=== PATIENT | male | born 1975 | race Two or more races ===

== ENCOUNTER 2016-06-26 20:22 | Emergency (ER) | payer MEDICAID, OTHER ==
[2016-06-26 20:31] VITALS: RESP 16
--- NOTE | 2016-06-26 20:58 | EDPHY ---
H & P Time Seen by Provider: 06/26/16 20:52 HPI/ROS: CHIEF COMPLAINT: Multiple complaints HISTORY OF PRESENT ILLNESS: This patient is a normally healthy 41 year old male who presents to the Emergency Department complaining of fever, cough, and headache over the past 2-3 weeks. His symptoms first presented as mild sore throat, nasal congestion, and cough and have since evolved to include persistent cough and body aches. He also has other complaints of bilateral mid- back pain and excessive thirst. He denies any new onset urinary or abdominal complaints. No pertinent medical history. No known history of diabetes, though both parents are diabetic. REVIEW OF SYSTEMS: Constitutional: +fever, +chills. +excessive thirst, +diffuse myalgias Eyes: No visual changes ENT: No sore throat Respiratory: +cough, no shortness of breath Cardiac: No chest pain Gastrointestinal: No nausea, no vomiting, no abdominal pain Genitourinary: no dysuria Musculoskeletal: No leg pain or swelling Skin: No rash Neurological: +headache, no numbness, no weakness Psychiatric: No depression Past Medical/Surgical History: Denies. Social History: Drinks socially. Does not smoke. at bedside. Montserratian-speaking only. Smoking Status: Never smoked Physical Exam: Alert and oriented x3, no acute distress Left hand: Mild diffuse swelling of left hand; blisters between third and fourth digits at the level of the PIP. Fingers are warm. Capillary refills is brisk. Radial pulse 2+. Neuro: Motor and sensory intact. Range of motion of all digits, limited due to swelling. Vascular: Capillary refill brisk distally Constitutional: Initial Vital Signs Temperature (C) 36.9 C 06/26/16 20:29 Heart Rate 81 06/26/16 20:29 Respiratory Rate 16 06/26/16 20:29 Blood Pressure 151/85 H 06/26/16 20:29 O2 Sat (%) 95 06/26/16 20:29 O2 Delivery Mode Room Air Allergies/Adverse Reactions: No Known Allergies Allergy (Verified 06/26/16 20:33) Home Medications: Medication Instructions Recorded NO HOME MEDICATIONS 04/18/11 Medical Decision Making - Diagnostics Imaging: Imaging Impressions Chest X-Ray 06/26/16 21:03 Impression: Minimal airways disease. No pneumonia. ED Course/Re-evaluation: This normally healthy 41 year old male presents with intermittent fever and chills, body aches, cough, and headache progressing over the past 2-3 weeks. He has other complaints including bilateral mid-back pain, excessive sweating, and increased thirst. He is not regularly evaluated by a PCP and does have familial history of diabetes in both parents. His exam is benign. He is afebrile at 36.9C. Will proceed with chest x-ray, labs, and urine dip. Urine dip is negative. Labs reviewed: Blood glucose level is elevated at 121. WBC within normal limits. Flu screen is positive. I discussed lab and imaging results with the patient as well as my recommendation that he follow-up with his primary care provider for evaluation, including further evaluation of possible prediabetes or diabetes. He is agreeable this. He will be discharged home in good condition with Tylenol instructions for fever. Differential Diagnosis: Differential diagnosis includes but is not limited to pneumonia, otitis media, peritonsillar abscess, retropharyngeal abscess, meningitis. - Data Points Laboratory Results: Laboratory Results 06/26/16 21:10 06/26/16 21:10 06/26/16 06/26/16 06/26/16 21:10 21:10 21:10 WBC 4.35 10^3/uL 10^3/uL (3.80-9.50) RBC 5.09 10^6/uL 10^6/uL (4.40-6.38) Hgb 15.8 g/dL g/dL (13.7-17.5) Hct 47.4 % % (40.0-51.0) MCV 93.1 fL fL (81.5-99.8) MCH 31.0 pg pg (27.9-34.1) MCHC 33.3 g/dL g/dL (32.4-36.7) RDW 11.9 % % (11.5-15.2) Plt Count 217 10^3/uL 10^3/uL (150-400) MPV 8.9 fL fL (8.7-11.7) Neut % (Auto) 41.8 % % (39.3-74.2) Lymph % (Auto) 39.8 % % (15.0-45.0) [place] % (Auto) 15.6 % H % (4.5-13.0) Eos % (Auto) 2.1 % % (0.6-7.6) Baso % (Auto) 0.5 % % (0.3-1.7) Nucleat RBC Rel Count 0.0 % % (0.0-0.2) Absolute Neuts (auto) 1.82 10^3/uL 10^3/uL (1.70-6.50) Absolute Lymphs (auto) 1.73 10^3/uL 10^3/uL (1.00-3.00) Absolute Monos (auto) 0.68 10^3/uL 10^3/uL (0.30-0.80) Absolute Eos (auto) 0.09 10^3/uL 10^3/uL (0.03-0.40) Absolute Basos (auto) 0.02 10^3/uL 10^3/uL (0.02-0.10) Absolute Nucleated RBC 0.00 10^3/uL 10^3/uL (0-0.01) Immature Gran % 0.2 % % (0.0-1.1) Immature Gran # 0.01 10^3/uL 10^3/uL (0.00-0.10) Sodium 140 mEq/L mEq/L (134-144) Potassium 3.7 mEq/L mEq/L (3.5-5.2) Chloride 104 mEq/L mEq/L (97-110) Carbon Dioxide 23 mEq/l mEq/l (22-31) Anion Gap 13 mEq/L mEq/L (8-16) BUN 16 mg/dL mg/dL (7-23) Creatinine 0.8 mg/dL mg/dL (0.7-1.3) Estimated GFR > 60 Glucose 121 mg/dL H mg/dL (70-100) Calcium 9.1 mg/dL mg/dL (8.5-10.4) Influenza Typ A,B (DFA) POSITIVE FOR FLU B H (NEGATIVE) Medications Given: Discontinued Medications Sodium Chloride (Ns) 1,000 mls @ 0 mls/hr IV ONCE ONE PRN Reason: Wide Open Stop: 06/26/16 21:04 Last Admin: 06/26/16 21:07 Dose: 1,000 mls Departure - Departure Disposition: Home, Routine, Self-Care Clinical Impression: Hyperglycemia, Influenza Condition: Good Instructions: Influenza (ED), Hyperglycemia, Non-Diabetic (ED) Additional Instructions: 1. Follow-up with a primary care provider within 5-7 days to address possible diabetes. 2. Take 850mg Tylenol by mouth every 4-6 hours as needed for fever. 3. Return to the Emergency Department with uncontrollable fever, lightheadedness , confusion, seizures, or other serious concerns. Referrals: Johnny Carrizales MD [Primary Care Provider] - As per Instructions [facility],. [Clinic] - As per Instructions Report Scribed for: Zayda Villar Report Scribed by: Denise Weiss Date of Report: 06/26/16 Time of Report: 20:53 Physician Review and Approval Statement: 06/26/16 20:53 Portions of this note were transcribed by a lpn medical assistant. I personally performed a history, physical exam, medical decision making, and confirmed accuracy of information the transcribed note.
[2016-06-26] MEDS ORDERED: NS 1,000 ML IV ONE (21:03)
[2016-06-26 21:23] LABS: % IMMATURE GRANULYOCYTES 0.2 % (0.0-1.1); ABSOLUTE IMMATURE GRANULOCYTES 0.01 10^3/uL (0.00-0.10); ADD DIFF? NO; ADD MORPH? NO; ADD SCAN? NO; ATYPICAL LYMPHOCYTE FLAG 10 (0-99); FRAGMENT RBC FLAG 0 (0-99); HEMATOCRIT 47.4 % (40.0-51.0); HEMOGLOBIN 15.8 g/dL (13.7-17.5); LEFT SHIFT FLG 10 (0-99); LIPEMIA HEMOLYSIS FLAG 80 (0-99); MEAN CELL HEMOGLOBIN CONCENTR. 33.3 g/dL (32.4-36.7); MEAN CELL VOLUME 93.1 fL (81.5-99.8); MEAN PLATELET VOLUME 8.9 fL (8.7-11.7); PLATELET CLUMPS FLAG 20 (0-99); PLATELET COUNT 217 10^3/uL (150-400); RED BLOOD CELL COUNT 5.09 10^6/uL (4.40-6.38); RED CELL DISTRIBUTION WIDTH 11.9 % (11.5-15.2)
[2016-06-26 21:31] LABS: ANION GAP 13 mEq/L (8-16); CALCIUM 9.1 mg/dL (8.5-10.4); CARBON DIOXIDE 23 mEq/l (22-31); CHLORIDE 104 mEq/L (97-110); CREATININE 0.8 mg/dL (0.7-1.3); GLOMERULAR FILTRATION RATE > 60; GLUCOSE 121 mg/dL (70-100); POTASSIUM 3.7 mEq/L (3.5-5.2); SODIUM 140 mEq/L (134-144)
[2016-06-26 22:16] VITALS: BP 133/89; PULSE 88; TEMP 97.9; O2SAT 96
== END 2016-06-26 22:14 | disposition home or self-care (01) ==
DX: J10.1 Influenza due to other identified influenza virus with other respiratory manifestations (principal); R73.9 Hyperglycemia, unspecified

== ENCOUNTER 2017-07-08 09:27 | Emergency (ER) | payer MEDICAID ==
[2017-07-08] MEDS ORDERED: ONDANSETRON 4 MG/2 ML VIAL IVP ONE (09:54)
[2017-07-08] MEDS ORDERED: KETOROLAC 30 MG/1 ML SDV IVP ONE (09:54)
[2017-07-08] MEDS ORDERED: NS 1,000 ML IV ONE (09:54)
[2017-07-08] MEDS ORDERED: HYDROmorphONE/DILAUDID 2 MG/ML INJ IVP ONE (09:55)
--- NOTE | 2017-07-08 09:58 | EDPHY ---
H & P Stated Complaint: r abd and r flank pain n/v Time Seen by Provider: 07/08/17 09:55 HPI/ROS: HPI: This is a 42-year-old male who presents with Chief Complaint: r abd and r flank pain n/v Location: Right abdomen and right flank Quality: Pain Duration: Starting at 7:30 a.m. This morning Signs and Symptoms: no fever, + nausea,+ vomiting x 1, no hematemesis, no blood in stool, no abdominal bloating, no diarrhea, no back pain, no urinary symptoms , no testicular/groin pain, no indigestion, no chest pain, no shortness of breath Timing: Acute, worsening Severity: 12/28 Context: Patient reports that he is generally healthy, presents this morning with sudden onset of right flank pain that radiated into his right groin approximately 30 min later. He reports that the pain started at a 5/10 and now is a 10/10. It was accompanied by nausea and 1 episode of vomiting prior to breakfast. Patient reports that he has never had any pain like this in the past. Denies any urinary symptoms including no hematuria, no urinary hesitancy , no urinary frequency. Patient reports that yesterday he was feeling fine; ate 3 meals without difficulty. Drinks 1 soda per day. No history of abdominal surgeries. Primary care provider is [facility] clinic. Had a bowel movement yesterday. In the waiting room in the emergency room patient was pain he seen and pacing back and forth and sweating. Patient gave a urine sample in immediately felt relief of pain. Modifying Factors: None Comment: ROS: see HPI Constitutional: No fever, no chills, no weight loss Eyes: No blurred vision Respiratory: No shortness of breath, no cough Cardiovascular: No chest pain, no palpitations Gastrointestinal: + nausea, + vomiting, no diarrhea, no hematemesis, no blood in stool Genitourinary: No dysuria, no blood in urine Extremities: No myalgias, no edema Neurologic: No weakness, no numbness Skin: No rashes, no petechiae Hematologic: No bruising, no bleeding MEDICAL/SURGICAL/SOCIAL HISTORY: Medical history: Generally healthy. Does not take any regular medications. Surgical history: Denies Social history: Reports does not drink alcohol. Family history noncontributory. CONSTITUTIONAL: Pleasant, moderate distress middle-aged male, nontoxic in appearance, awake and alert HEENT: Atraumatic and normocephalic, PERRL, EOMI. Nares patent; no rhinorrhea; no nasal mucosal edema. Tympanic membranes clear. Oropharynx clear, no exudate and moist pink mucosa. Airway patent. No lymphadenopathy. No meningismus. Cardiovascular: Normal S1/S2, regular rate, regular rhythm, without murmur rub or gallop. PULMONARY/CHEST: Symmetrical and nontender. Clear to auscultation bilaterally. Good air movement. No accessory muscle usage. ABDOMEN: Soft, nondistended, right lower quadrant tenderness, no rebound, no guarding, no peritoneal signs, no masses or organomegaly. No CVAT. Bowel sounds heard x4 quadrant. EXTREMITIES: 2/2 pulses, strength 5/5, no deformities, no clubbing, no cyanosis or edema. NEUROLOGICAL: no focal neuro deficits. GCS 15. SKIN: Warm and dry, no erythema. no rash. Good capillary refill. Source: Patient, Supervisor [employer] Exam Limitations: Language barrier (Guyanese) - Personal History Current Tetanus/Diphtheria Vaccine: Yes - Medical/Surgical History Hx Asthma: No Hx Chronic Respiratory Disease: No Hx Diabetes: No Hx Cardiac Disease: No Hx Renal Disease: No Hx Cirrhosis: No Hx Alcoholism: No Hx HIV/AIDS: No Hx Splenectomy or Spleen Trauma: No Other PMH: none - Social History Smoking Status: Never smoked Constitutional: Initial Vital Signs Temperature (C) 36.4 C 07/08/17 09:31 Heart Rate 78 07/08/17 09:31 Respiratory Rate 18 07/08/17 09:31 Blood Pressure 130/114 H 07/08/17 09:31 O2 Sat (%) 97 07/08/17 09:31 O2 Delivery Mode Room Air Allergies/Adverse Reactions: No Known Allergies Allergy (Verified 07/08/17 09:31) Home Medications: Medication Instructions Recorded NO HOME MEDICATIONS 04/18/11 Medical Decision Making - Diagnostics Imaging Results: Imaging Impressions Abdomen/Pelvis CT 07/08/17 09:55 Impression: 1. There is no evidence of nephroureterolithiasis or obstructive uropathy. There is some equivocal inflammation adjacent to the right ureter, which may represent recent passage of a stone. There is no ureteral dilatation. If there is ongoing hematuria, multiphasic contrast-enhanced CT imaging with a "CT urographic" evaluation is suggested. 2. Incompletely-distended urinary bladder, which may account for its wall thickening, although a concurrent cystitis is not excluded. 3. Bilateral fat-containing inguinal hernias. Attention: This CT examination is specifically designed to evaluate patients who are clinically suspected of having acute obstructive uropathy. This examination does not use radiographic contrast, and as such, provides only a limited evaluation of the abdomen, pelvis, and retroperitoneum. If there is further clinical suspicion for pathological conditions other than obstructive uropathy, a complete CT evaluation of the abdomen and pelvis utilizing intravenous, oral, and rectal contrast should be considered. Findings were discussed with Luciana Blanca PA-C at 10:37, on 07/08/2017. ED Course/Re-evaluation: 0955: Labs, urinalysis, IV fluids, IV medication, CT abdomen and pelvis scan without contrast ordered. 1000: Given 1 L normal saline, IV Toradol, IV Dilaudid 1 mg 1028: Labs reviewed. No signs of leukocytosis/anemia/KYM/electrolyte imbalance. Creatinine noted to be 0.8 Urinalysis reviewed and shows 2+ blood; 50-182 RBCs; no signs of infection 1040: Called by radiologist, Dr. Pina, who advised bilateral inguinal hernias but no signs of incarceration. Bladder does not show signs of cystitis. Right ureter shows equivocal dilation. 1045: Reassessed patient. Reports no abdominal flank pain. Abdomen soft and nontender. Doubt surgical abdomen. Based on patient's history of resolution of pain with urination and CT scan showing equivocal right ureter dilation; suspect patient may have passed the stone. Patient is ready to be discharged home; passed p.o. Trial. This patient was seen under the supervision of my secondary supervising physician. I evaluated care for this patient independently. Differential Diagnosis: Flank pain including but not limited to musculoskeletal causes, kidney stone, pyelonephritis, shingles, and intra-abdominal causes such as diverticulitis and appendicitis. - Data Points Laboratory Results: Laboratory Results 07/08/17 09:45 07/08/17 09:45 07/08/17 07/08/17 07/08/17 09:45 09:45 09:30 WBC 6.59 10^3/uL 10^3/uL (3.80-9.50) RBC 5.28 10^6/uL 10^6/uL (4.40-6.38) Hgb 16.2 g/dL g/dL (13.7-17.5) Hct 48.0 % % (40.0-51.0) MCV 90.9 fL fL (81.5-99.8) MCH 30.7 pg pg (27.9-34.1) MCHC 33.8 g/dL g/dL (32.4-36.7) RDW 11.9 % % (11.5-15.2) Plt Count 284 10^3/uL 10^3/uL (150-400) MPV 8.5 fL L fL (8.7-11.7) Neut % (Auto) 55.7 % % (39.3-74.2) Lymph % (Auto) 34.4 % % (15.0-45.0) [place] % (Auto) 5.8 % % (4.5-13.0) Eos % (Auto) 3.3 % % (0.6-7.6) Baso % (Auto) 0.5 % % (0.3-1.7) Nucleat RBC Rel Count 0.0 % % (0.0-0.2) Absolute Neuts (auto) 3.67 10^3/uL 10^3/uL (1.70-6.50) Absolute Lymphs (auto) 2.27 10^3/uL 10^3/uL (1.00-3.00) Absolute Monos (auto) 0.38 10^3/uL 10^3/uL (0.30-0.80) Absolute Eos (auto) 0.22 10^3/uL 10^3/uL (0.03-0.40) Absolute Basos (auto) 0.03 10^3/uL 10^3/uL (0.02-0.10) Absolute Nucleated RBC 0.00 10^3/uL 10^3/uL (0-0.01) Immature Gran % 0.3 % % (0.0-1.1) Immature Gran # 0.02 10^3/uL 10^3/uL (0.00-0.10) Sodium 141 mEq/L mEq/L (135-145) Potassium 4.0 mEq/L mEq/L (3.5-5.2) Chloride 104 mEq/L mEq/L (97-110) Carbon Dioxide 28 mEq/l mEq/l (22-31) Anion Gap 9 mEq/L mEq/L (8-16) BUN 16 mg/dL mg/dL (7-23) Creatinine 0.8 mg/dL mg/dL (0.7-1.3) Estimated GFR > 60 Glucose 137 mg/dL H mg/dL (70-100) Calcium 9.4 mg/dL mg/dL (8.5-10.4) Urine Color YELLOW Urine Appearance CLEAR Urine pH 5.0 (5.0-7.5) Ur Specific [place] 1.017 (1.002-1.030) Urine Protein NEGATIVE (NEGATIVE) Urine Ketones NEGATIVE (NEGATIVE) Urine Blood 2+ H (NEGATIVE) Urine Nitrate NEGATIVE (NEGATIVE) Urine Bilirubin NEGATIVE (NEGATIVE) Urine Urobilinogen NEGATIVE EU EU (0.2-1.0) Ur Leukocyte Esterase NEGATIVE (NEGATIVE) Urine RBC 50-182 /hpf H /hpf (0-3) Urine WBC 1-3 /hpf /hpf (0-3) Ur Epithelial Cells TRACE /lpf /lpf (NONE-1+) Urine Mucus 2+ /lpf H /lpf (NONE-1+) Urine Glucose NEGATIVE (NEGATIVE) Medications Given: Discontinued Medications Hydromorphone HCl (Dilaudid) 1 mg IVP EDNOW ONE Stop: 07/08/17 09:56 Last Admin: 07/08/17 10:06 Dose: Not Given Sodium Chloride (Ns) 1,000 mls @ 0 mls/hr IV ONCE ONE; Wide Open PRN Reason: Protocol Stop: 07/08/17 09:55 Last Admin: 07/08/17 10:05 Dose: 1,000 mls Ketorolac Tromethamine (Toradol) 30 mg IVP EDNOW ONE Stop: 07/08/17 09:55 Last Admin: 07/08/17 10:05 Dose: 30 mg Ondansetron HCl (Zofran) 4 mg IVP EDNOW ONE Stop: 07/08/17 09:55 Last Admin: 07/08/17 10:06 Dose: 4 mg Departure - Departure Disposition: Home, Routine, Self-Care Clinical Impression: Kidney stone on right side, Renal colic on right side Inguinal hernia bilateral, non-recurrent Qualifiers: Obstruction and gangrene presence: without obstruction or gangrene Recurrence: not specified as recurrent Qualified Code(s): K40.20 - Bilateral inguinal hernia , without obstruction or gangrene, not specified as recurrent Condition: Good Instructions: Kidney Stones (ED), Renal Colic (ED), Inguinal Hernia (ED) Additional Instructions: It appears that you may have passed a kidney stone on the right side. Also noted bilateral inguinal hernia. Consume a minimum of 8-10 glasses of water or electrolyte fluid replacement drinks that include Gatorade, Powerade, Pedialyte. Limit soda use. Please avoid lifting heavy objects. Return to the Emergency Room if you spike a fever > 102 F, or experience intractable abdominal pain/nausea/vomiting. Al parecer usted paso un calculo renal( caro del rinon) en el lado derecho. Consuma un munimo de 8-10 vasos con agua o reemplazos de bebidas con electrolitos concetta Gatorade, Powerade, Pedialyte. Limite el consumo de soda. Regrese al cuarto de emergencias si tiene fiebre >102 grados F, o experimenta dolor abdominal/nausea/vomito. Referrals: [facility],. [Clinic] - As per Instructions
[2017-07-08 10:00] LABS: PLATELET COUNT 284 10^3/uL (150-400)
[2017-07-08 11:17] VITALS: BP 135/82
== END 2017-07-08 11:17 | disposition home or self-care (01) ==
DX: K40.20 Bilateral inguinal hernia, without obstruction or gangrene, not specified as recurrent (principal); N20.0 Calculus of kidney; E86.9 Volume depletion, unspecified
CPT/HCPCS: 96374; J1170; J1885; J2405

== ENCOUNTER 2017-12-26 19:12 | Emergency (ER) | payer MEDICAID ==
[2017-12-26 19:19] VITALS: BP 118/77
--- NOTE | 2017-12-26 19:50 | EDPHY ---
H & P Stated Complaint: groin rash 2 wks Time Seen by Provider: 12/26/17 19:29 - Personal History Current Tetanus/Diphtheria Vaccine: Unsure Current Tetanus Diphtheria and Acellular Pertussis (TDAP): Unsure - Medical/Surgical History Hx Asthma: No Hx Chronic Respiratory Disease: No Hx Diabetes: No Hx Cardiac Disease: No Hx Renal Disease: No Hx Cirrhosis: No Hx Alcoholism: No Hx HIV/AIDS: No Hx Splenectomy or Spleen Trauma: No Other PMH: none - Social History Smoking Status: Never smoked Constitutional: Initial Vital Signs Temperature (C) 36.4 C 12/26/17 19:18 Heart Rate 84 12/26/17 19:18 Respiratory Rate 16 12/26/17 19:18 Blood Pressure 118/77 12/26/17 19:18 O2 Sat (%) 95 12/26/17 19:18 O2 Delivery Mode Room Air Allergies/Adverse Reactions: No Known Allergies Allergy (Verified 07/08/17 09:31) Home Medications: Medication Instructions Recorded NO HOME MEDICATIONS 04/18/11 Nystatin/Triamcin 30 channing TP QID #1 oint..gm. 12/26/17 [Nystatin-Triamcinolone Ointm] Medical Decision Making ED Course/Re-evaluation: CHIEF COMPLAINT: Groin/armpit rash HISTORY OF PRESENT ILLNESS: This patient is a Argentine-speaking 42 year old male complaining of a pruritic rash in his groin and armpits. This has been ongoing for two weeks. He tried a course of steroid cream but this did not relieve his symptoms. The rash has persisted and continues to be localized to his groin area and axilla. He denies warmth, discharge. The rash has not extended beyond these areas. No fever. REVIEW OF SYSTEMS: A comprehensive 10 system review of systems is otherwise negative aside from elements mentioned in the history of present illness and medical decision making. PHYSICAL EXAM: HR, BP, O2 Sat, RR. Temp noted General Appearance: Alert, well hydrated, appropriate, and non-toxic appearing. Head: Atraumatic. Respiratory: No retractions, no distress, no wheezes, and no accessory muscle use. Lungs are clear to auscultation bilaterally. Cardiovascular: Good capillary refill all extremities. Musculoskeletal: Normal active ROM of all extremities, atraumatic. Neurological: Alert, appropriate, and interactive. Nonfocal neuro exam. Skin: Erythematous base with small white pustules. No vesicles No rashes, good turgor, no nodules on palpation. Past medical history: Noncontributory Past surgical history: Noncontributory Family history: Noncontributory Social history: . Employed. Does not abuse tobacco, drugs, or alcohol. DIFFERENTIAL DIAGNOSIS: The differential diagnosis for the patient's rash includes but is not limited to contact dermatis, folliculitis, urticaria, tinea cruris. MEDICAL DECISION [id number] y/o male presents with pruritic rash in his groin and axillas. On exam, this is consistent with a fungal infection. Plan to discharge home in good condition with prescription for nystatin-triamcinolone cream. He will follow up with his primary care provider. Return precautions discussed. He is comfortable with this plan. Departure - Departure Disposition: Home, Routine, Self-Care Clinical Impression: Tinea cruris Condition: Good Instructions: Jock Itch (ED) Additional Instructions: Use Nystatin ointment as directed. Follow up with your primary care provider. Keep the areas clean and dry. Referrals: Dung Bahena MD [Medical Doctor] - As per Instructions Prescriptions: Nystatin/Triamcin [Nystatin-Triamcinolone Ointm] 30 channing TP QID #1 oint..gm. Print Language: Argentine Report Scribed for: Gaetano Barahona Report Scribed by: Josselin Gonzales Date of Report: 12/26/17 Time of Report: 19:50
== END 2017-12-26 20:00 | disposition home or self-care (01) ==
DX: B35.6 Tinea cruris (principal)